=== PATIENT | male | born 1935 | race Caucasian/White ===

== ENCOUNTER 2020-03-11 09:08 | Outpatient (CLI) | payer OTHER, SELFPAY ==
--- NOTE | ~2020-03-11 | XR_ITS ---
EXAMINATION: XR abdomen/kub 1V DATE: 03/11/2020 09:26 INDICATION: Calcium kidney stone. TECHNIQUE: A supine view of the abdomen on 2 radiographs was obtained. COMPARISON: Abdomen radiographs 01/28/2018 FINDINGS: There are no dilated loops of bowel. The kidneys are obscured by bowel. A 2.5 cm calcificat ion overlies the right kidney. Multiple calcifications measuring up to 6 mm overlie the right renal p bobby and proximal right ureter. There are phleboliths in left pelvis. IMPRESSION: 1. Calcifications overlying the right kidney and proximal right ureter, at least most of which are li matt stones. Reviewed, dictated and finalized at location A. IMPRESSION: 1. Calcifications overlying the right kidney and proximal right ureter, at leas t most of which are likely stones.
== END 2020-03-11 09:09 | disposition home or self-care (01) ==
PROVIDERS: PCP Internal Medicine; Visit Provider Urology
DX: N20.2 Calculus of kidney with calculus of ureter (principal)
CPT/HCPCS: 74018

== ENCOUNTER 2020-07-01 10:53 | Outpatient (CLI) | payer OTHER, SELFPAY ==
--- NOTE | ~2020-07-01 | XR_ITS ---
EXAMINATION: XR abdomen/kub 1V INDICATION: Calcium kidney stone TECHNIQUE: Supine views of the abdomen were obtained on 2 radiographs. COMPARISON: 03/11/2020 FINDINGS: There is a 2.1 cm calcification projecting over the right kidney lower pole. There are mult iple stable calcifications projecting at the level of the L1 and L2 vertebral bodies on the right. Ca lcifications projecting in the left kidney upper pole measure up to 2 mm. 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 The bowel gas pattern is n ormal. There is moderate osteoarthritis of the hips. The lung bases are clear. Severe lumbar spondylo sis is noted. IMPRESSION: 1. Bilateral nephrolithiasis. 2. Calcifications projecting over the proximal right ureter, likely within the ureter. Reviewed, dictated and finalized at location A. 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
== END 2020-07-01 10:54 | disposition home or self-care (01) ==
PROVIDERS: PCP Internal Medicine; Visit Provider Urology
DX: N20.0 Calculus of kidney (principal)
CPT/HCPCS: 74018

== ENCOUNTER 2022-12-27 03:19 | Day surgery (SDC) | payer MEDICARE, SELFPAY ==
[2022-12-20 12:59] VITALS: BMI 24.1
--- NOTE | 2022-12-20 13:52 | PC.NURSE ---
Addendum entered by Jovita Forte RN 12/21/22 09:27: CONFIRMED WITH ISABEL AT DR. WILD' OFFICE THAT ELLIQUIS AND FISH OIL SHOULD BE HELD 2 DAYS PRIOR TO SURGERY. ATTEMPTED TO CONTACT NURSE AT [facility], UNABLE TO REACH AFTER LENGTHY TELEPHONE HOLD. REFAXED INSTRUCTIONS TO [facility] TO HOLD BOTH MEDS 2 DAYS. Original Note: PRE-OP INSTRUCTIONS, PLEASE READ CAREFULLY Report to the Outpatient Waiting Room, entrance under the green pavilion located off [facility], at time _1000_ on date _12/27/22_. Planned Procedure Time: _1200_. Time changes happen often and if your time is changed the preop area will call you the afternoon before. - You and your visitor will be asked to self-screen and do not enter if you have any COVID symptoms. - A mask is optional within the hospital at this time. Patients may have clear liquids (water, carbonated beverages, clear teas, apple juice) until 3 hours prior to surgery with a maximum of 20 ounces. - No food from midnight until time of surgery Take the following medications with a SIP of water the morning of surgery: _DEPAKOTE, MEMANTINE, METOPROLOL, EYE DROPS NO DIABETIC MEDICATION DAY OF SURGERY_ DO NOT STOP ANY OF YOUR OTHER PRESCRIPTION MEDICATIONS PRIOR TO SURGERY ?EXCEPT THE FOLLOWING Medications to discontinue - _ELIQUIS, FISH OIL PER DR. WILD'S INSTRUCTIONS_ Date to take last dose Please no make-up, nail irish, hairspray, perfume, deodorant, or body powder the day of surgery. No jewelry (including any body piercings) or valuables the day of surgery, leave them at home. Please take a shower or bath the night before, or the morning of, surgery with an antibacterial soap. Wear comfortable, loose fitting clothing. - Jewelry must be removed prior to entering the operating room. Rings and piercings that are not removed may be cut off. - The hospital will not accept responsibility for valuables. - Please leave all valuables, including medications, at home the day of surgery. If you are going home after surgery, a licensed cpr ambulance driver must drive you home. - NO public transportation without another adult if you receive anesthesia. - We recommend that an adult stay with you for 24 hours following discharge. - We also recommend that you do not drive, make important decision, drink alcoholic beverages, or take any drugs that were not prescribed by your health care provider for at least 24 hours after your discharge time. Follow any additional instructions given to you from your surgeon. If you or anyone in your household have experienced Covid symptoms in the past week, please notify your surgeon or the nurse liaison at the phone number below for possible testing. Telephone instructions given/FAXED to _[facility]_and asked if any additional questions and then verbalized understanding. Patient advised to call surgeon office or pre surgery nurse liaison [phone] if any additional questions.
--- NOTE | 2022-12-25 06:51 | PM.HPGS ---
History of Present Illness History of Present Illness Consent: Risks, benefits, and alternatives have been discussed and questions answered. Patient agrees to proceed with procedure. 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 ?At that time his creatinine improved from 5.2 to its baseline of around 2.5. ?His Gabriel catheter has been out for a month so were going to repeat the BMP. ? His daughters are here to discuss management of the staghorn in we decided ultimately to manage his simply with a chronic indwelling stent with periodic changes. he has recently begun to have increasing hematuria an opted for cystoscopy with right ureteral stent exchange. He is aware the risk including, not limited to, ureteral injury, difficulty replacing the stent and need for a percutaneous nephrostomy tube. Review of Systems Review of Systems: All systems reviewed & are unremarkable except as noted in HPI and below PMFSH Social History Social History Smoking status: Unknown if ever smoked Living arrangements: half-way Additional living arrangements comments: [facility] Meds Home Medications and Allergies Home Medications Medication Instructions Recorded Confirmed Type acetaminophen 325 mg tablet 650 mg PO Q4H PRN Pain 12/20/22 12/20/22 History (Tylenol) apixaban 5 mg tablet (Eliquis) 5 mg PO BID 12/20/22 12/20/22 History atorvastatin 40 mg tablet (Lipitor) 40 mg PO HS 12/20/22 12/20/22 History dextromethorphan-guaifenesin 30 1 tablet PO Q12H PRN Cough 12/20/22 12/20/22 History mg-600 mg tablet extended [id number] hr (Mucinex DM) divalproex 125 mg tablet,delayed 125 mg PO BID 12/20/22 12/20/22 History release (Depakote) docusate sodium 100 mg capsule 100 mg PO DAILY 12/20/22 12/20/22 History (Colace) fluoxetine 10 mg tablet 10 mg PO HS 12/20/22 12/20/22 History glucosamine sulf dipot 2 cap PO DAILY 12/20/22 12/20/22 History chlr,msm,chond 550 mg-C 30 mg-steff 1 mg capsule (Glucosamine Chondroitin) hydrochlorothiazide 25 mg tablet 25 mg PO DAILY 12/20/22 12/20/22 History insulin NPH isoph U-100 human 100 See Rx Instructions .Route .COMPLEX 12/20/22 12/20/22 History unit/mL (3 mL) subcutaneous pen (Novolin N FlexPen) linagliptin 5 mg tablet (Tradjenta) 5 mg PO QAM 12/20/22 12/20/22 History losartan 100 mg tablet (Cozaar) 100 mg PO DAILY 12/20/22 12/20/22 History melatonin 5 mg capsule 5 mg HS 12/20/22 12/20/22 History memantine 10 mg tablet (Namenda) 10 mg PO BID 12/20/22 12/20/22 History metformin 1,000 mg tablet 1,000 mg BID 12/20/22 12/20/22 History metoprolol tartrate 50 mg tablet 50 mg PO BID 12/20/22 12/20/22 History omega 9-fdt-aez-fish oil 1,000 mg 1 cap PO DAILY 12/20/22 12/20/22 History (120 mg-180 mg) capsule (Fish Oil) tamsulosin 0.4 mg capsule (Flomax) 0.4 mg PO DAILY 12/20/22 12/20/22 History tobramycin 0.3 %-dexamethasone 0.1 2 drp EACH EYE QID 12/20/22 12/20/22 History % eye drops,suspension (TobraDex) Allergies Allergy/AdvReac Type Severity Reaction Status Date / Time No Known Allergies Allergy Verified 12/20/22 13:20 Exam Const: General: no acute distress Resp: Effort & Inspection: normal respiratory effort GI: Inspection: non-distended GI Palp: No abdominal tenderness and No Guarding due to palpation present (GI) Auscultation: normal bowel sounds Assessment and Plan Assessment and plan (1) Right renal stone: Code(s): N20.0 - Calculus of kidney Status: Acute (2) Gross hematuria: Code(s): R31.0 - Gross hematuria Status: Acute Assessment and Plan: Cystoscopy, right ureteral stent exchange
--- NOTE | ~2022-12-27 | XR_ITS ---
EXAMINATION: XR retrograde pyelo w/stent RT DATE: 12/27/2022 11:48 INDICATION: Right kidney stone. TECHNIQUE: 3 intraoperative fluoroscopic views of the abdomen and pelvis were obtained. I was not pre sent. Fluoroscopy exposure time was 90 seconds. COMPARISON: Abdomen radiograph 07/01/2020 FINDINGS: The right-sided retrograde pyelogram demonstrates stones in the right kidney. There is a ri ght internal ureteral stent in expected position. IMPRESSION: 1. Right internal ureteral stent in expected position. 2. Stones in the right kidney. Reviewed, dictated and finalized at location A.
--- NOTE | 2022-12-27 04:44 | WPDHPUPDATE1 ---
History and Physical Update Update Date/Time: 12/27/22 04:44 History and Physical has been reviewed, including an updated exam of the patient. There are NO changes in the patient's condition. Risks, benefits, and alternatives have been discussed and questions answered. Patient agrees to proceed with procedure.
--- NOTE | 2022-12-27 08:57 | ECG_ITS ---
Measurements Intervals [place] Rate: 66 P: 44 UT: 210 QRS: -66 QRSD: 122 T: 35 QT: 478 QTc: 504 Interpretive Statements SINUS RHYTHM WITH FIRST DEGREE AV BLOCK BORDERLINE AV CONDUCTION DELAY LEFT ANTERIOR FASCICULAR BLOCK PROLONGED QT INTERVAL ABNORMAL ECG NO PREVIOUS ECG AVAILABLE FOR COMPARISON Electronically Signed On 12-27-2022 12:00:54 CDT by Cb Trujillo D.O.
[2022-12-27 10:17] VITALS: BP 144/81; PULSE 68; RESP 20; TEMP 36.5; O2SAT 99
[2022-12-27] MEDS: LACTATED RINGERS 1,000 ML 30 ML IV CONT (10:45)
--- NOTE | 2022-12-27 10:57 | WPDANESEPPF ---
Anes - Initial Pre Proc Eval Procedure: Operation Date: 12/27/22 12:00 Proposed Procedures p Cystoscopy with Right Stent Exchange - Timothy Rose MD Date/Time: 12/27/22 10:57 Surgeon: Timothy Rose MD Pre Op Diagnosis: right ureteral stone Patient Data Age: 87 Gender: M Height: 1.78 m Weight: 76.45 kg Allergies Allergy/AdvReac Type Severity Reaction Status Date / Time No Known Allergies Allergy Verified 12/20/22 13:20 Home Medications Medication Instructions Recorded Confirmed Type acetaminophen 325 mg tablet 650 mg PO Q4H PRN Pain 12/20/22 12/20/22 History (Tylenol) apixaban 5 mg tablet (Eliquis) 5 mg PO BID 12/20/22 12/20/22 History atorvastatin 40 mg tablet (Lipitor) 40 mg PO HS 12/20/22 12/20/22 History dextromethorphan-guaifenesin 30 1 tablet PO Q12H PRN Cough 12/20/22 12/20/22 History mg-600 mg tablet extended [id number] hr (Mucinex DM) divalproex 125 mg tablet,delayed 125 mg PO BID 12/20/22 12/20/22 History release (Depakote) docusate sodium 100 mg capsule 100 mg PO DAILY 12/20/22 12/20/22 History (Colace) fluoxetine 10 mg tablet 10 mg PO HS 12/20/22 12/20/22 History glucosamine sulf dipot 2 cap PO DAILY 12/20/22 12/20/22 History chlr,msm,chond 550 mg-C 30 mg-steff 1 mg capsule (Glucosamine Chondroitin) hydrochlorothiazide 25 mg tablet 25 mg PO DAILY 12/20/22 12/20/22 History insulin NPH isoph U-100 human 100 See Rx Instructions .Route .COMPLEX 12/20/22 12/20/22 History unit/mL (3 mL) subcutaneous pen (Novolin N FlexPen) linagliptin 5 mg tablet (Tradjenta) 5 mg PO QAM 12/20/22 12/20/22 History losartan 100 mg tablet (Cozaar) 100 mg PO DAILY 12/20/22 12/20/22 History melatonin 5 mg capsule 5 mg HS 12/20/22 12/20/22 History memantine 10 mg tablet (Namenda) 10 mg PO BID 12/20/22 12/20/22 History metformin 1,000 mg tablet 1,000 mg BID 12/20/22 12/20/22 History metoprolol tartrate 50 mg tablet 50 mg PO BID 12/20/22 12/20/22 History omega 8-fof-zmq-fish oil 1,000 mg 1 cap PO DAILY 12/20/22 12/20/22 History (120 mg-180 mg) capsule (Fish Oil) tamsulosin 0.4 mg capsule (Flomax) 0.4 mg PO DAILY 12/20/22 12/20/22 History tobramycin 0.3 %-dexamethasone 0.1 2 drp EACH EYE QID 12/20/22 12/20/22 History % eye drops,suspension (TobraDex) Laboratory Tests 12/27/22 10:43 APTT Pending Patient hx anesthesia problems: none Family hx anesthesia problems: none Results Review: All pre-operative results and documents have been reviewed as part of the pre-operative evaluation. [facility] Social History Social History Smoking status: Unknown if ever smoked Living arrangements: halfway Additional living arrangements comments: [facility] Anes - Evignacio Final PreProcedure Day of Procedure 12/27/22 10:57 Patient weight: normal Heart: regular rate and rhythm Lungs: clear to auscultation Airway: Mallampati scale class II Neurological: alert and oriented Last oral intake: >/= 8 hours ASA classification: III Emergent: no Anesthetic plan: proceed Anesthesia type and monitoring: general LMA and standard monitoring Results Review: All pre-operative results and documents have been reviewed as part of the pre-operative evaluation. Informed Consent: The patient's anesthetic plan and its attendant risks and benefits were discussed with the patient/family/POA. Questions were solicited and answers provided to the satisfaction of the patient/family/POA.
[2022-12-27 11:00] LABS: Glucose Point of Care 130 mg/dl (65-105)
[2022-12-27 11:13] LABS: Partial Thromboplastin Time 34.4 SECONDS (22.3-36.8)
[2022-12-27] MEDS: ceFAZolin 2 GM/D5W 50 ML 2 GM/50 ML BAG IVPB (11:15)
[2022-12-27] MEDS: LIDOCAINE HCL 2% GEL UROJET 10 ML PKG MUCOUS MEM (11:22)
--- NOTE | 2022-12-27 11:45 | W.PM.PROC2 ---
Procedure Note - Detailed Date of Procedure 12/27/22 Pre-op Diagnosis Right staghorn renal calculus Post-op Diagnosis Same Procedure Performed Cystoscopy right retrograde pyelography and right ureteral stent exchange Surgeon Timothy Rose MD Anesthesia General Description of Procedure patient is brought the op suite was prepped draped in routine sterile fashion while in dorsal lithotomy position. 2% xylocaine jelly was introduced intraurethrally and systemic sedation is administered per the anesthesia department. Cystoscopy is undertaken with a 16 F flexible cystoscope. Tip of the indwelling stent is grasped and it is removed with ease. The stent has minimal incrustation. 0.035 in glidewire was advanced into the right renal pelvis through the cystoscope. Retrograde pyelography was undertaken with the angiographic catheter ensure appropriate positioning of the stent. A new 4.8 F variable length ureteral stent is placed with the proximal coil in the pelvis distal coil in the bladder. Scopes wires removed. He tolerated the procedure well was taken recovery room good condition Drains No Packing No Pathology None sent Complications No immediate complications
[2022-12-27 11:49] VITALS: BP 127/67; PULSE 62; RESP 16; O2SAT 100
[2022-12-27 11:57] LABS: Glucose Point of Care 130 mg/dl (65-105)
[2022-12-27 12:20] VITALS: BP 128/69; PULSE 58; RESP 16; O2SAT 98
[2022-12-27 12:50] VITALS: BP 135/71; PULSE 62; RESP 15
[2022-12-27 13:20] VITALS: BP 141/85; PULSE 64; RESP 16
== END 2022-12-27 13:45 | disposition home or self-care (01) ==
PROVIDERS: Anesthesiology; PCP Internal Medicine; Visit Provider Urology
PROC: (CPT 52310; principal; 2022-12-27 12:00)
DX: N20.0 Calculus of kidney (principal); Z79.4 Long term (current) use of insulin; Z79.01 Long term (current) use of anticoagulants; Z79.84 Long term (current) use of oral hypoglycemic drugs
CPT/HCPCS: 52332; 36415; 74420; 82948; 85730; 93005; C1758; C1769; C2617; J0690; J2405; J2704; J3010; J7120; Q9966